=== PATIENT | male | born 1970 | race Caucasian/White ===

== ENCOUNTER 2017-07-26 06:28 | Inpatient (IN) | payer OTHER ==
[2017-07-26] MEDS ORDERED: fentaNYL 100 MCG/2 ML SDV ONE (06:47)
[2017-07-26] MEDS ORDERED: Lidocaine 2% 5 ML SDV ONE (06:47)
[2017-07-26] MEDS ORDERED: Propofol 200 MG/20 ML SDV ONE ×2 (06:47→08:20)
[2017-07-26] MEDS ORDERED: Midazolam 1 MG/ML 2 ML SDV ONE (06:48)
[2017-07-26] MEDS ORDERED: Sodium Chloride 0.9% 20 ML ONE (06:52)
[2017-07-26] MEDS ORDERED: ceFAZolin 1 GM Vial ONE (06:52)
[2017-07-26] MEDS ORDERED: Sodium Chloride 0.9% 10 ML Syringe FLUSH PRN (06:53)
[2017-07-26] MEDS ORDERED: Sodium Chloride 0.9% 2.5 ML Syringe FLUSH PRN (06:53)
[2017-07-26] MEDS: Lactated Ringers 1,000 ML IV SCH ×3 (07:05→20:57)
[2017-07-26] MEDS ORDERED: Dermabond Prineo 1 Tube TOP ONE (07:25)
--- NOTE | 2017-07-26 07:45 | PCM.PREANE ---
Preanesthetic Assessment - Anesthesia/Transfusion/Family Hx Anesthesia History: Prior Anesthesia Without Reaction Family History of Anesthesia Reaction: No Transfusion History: No Prior Transfusion(s) - Review of Systems General: No Symptoms Pulmonary: Other (JEFERSON uses CPAP) Cardiovascular: No Symptoms Gastrointestinal: No Symptoms Neurological: No Symptoms Other: Reports: None - Physical Assessment NPO Status Date: 07/25/17 O2 Sat by Pulse Oximetry: 95 Respiratory Rate: 16 Vital Signs: Last Vital Signs Temp 36.4 C 07/26/17 06:49 Pulse 76 07/26/17 06:49 Resp 16 07/26/17 06:49 BP 133/75 07/26/17 06:49 Pulse Ox 95 07/26/17 06:49 Height: 1.91 m Weight: 121.563 kg ASA Class: 2 Airway Class: Mallampati = 1 Dentition: Reports: Normal Dentition ROM/Head Extension: Full Lungs: Clear to Auscultation, Normal Respiratory Effort Cardiovascular: Regular Rate, Regular Rhythm - Allergies Allergies/Adverse Reactions: Allergies Allergy/AdvReac Type Severity Reaction Status Date / Time No Known Allergies Allergy Verified 07/26/17 06:53 - Anesthesia Plan Pre-Op Medication Ordered: None - Acknowledgements Anesthesia Type Planned: Spinal Pt an Appropriate Candidate for the Planned Anesthesia: Yes Alternatives and Risks of Anesthesia Discussed w Pt/Guardian: Yes Pt/Guardian Understands and Agrees with Anesthesia Plan: Yes PreAnesthesia Questionnaire HEENT History: Cardiovascular History: Reports: Hypertension Other Cardiovascular History: "hypertension in the past" Respiratory History: Reports: Sleep Apnea, Other (See Below) Other Respiratory History: uses CPAP Musculoskeletal History: Reports: Osteoarthritis Other Musculoskeletal History: DJD Psychiatric History: Reports: Anxiety, Depression Endocrine/Metabolic History: Reports: Obesity/BMI 30+ Dermatologic History: Reports: Eczema - Past Surgical History Head Surgeries/Procedures: Reports: None Musculoskeletal Surgical History: Reports: Arthroscopic Knee Other Musculoskeletal Surgeries/Procedures:: arthroscopic knee surgery x3 - SUBSTANCE USE Smoking Status *Q: Never Smoker Recreational Drug Use History: No - HOME MEDS Home Medications: Home Meds Naproxen Sodium [Aleve] 2 - 3 tab PO ASDIRECTED PRN 07/23/17 [History] Venlafaxine HCl [Venlafaxine HCl ER] 75 mg PO DAILY 07/23/17 [History] - CURRENT (IN HOUSE) MEDS Current Meds: Current Medications Lactated Ringer's (Ringers, Lactated) 1,000 mls @ 125 mls/hr IV ASDIRECTED FERNANDO Last Admin: 07/26/17 07:05 Dose: 125 mls/hr Cefazolin Sodium/Dextrose 2 gm (/ Premix) 50 mls @ 50 mls/hr IV ONETIME ONE Stop: 07/26/17 08:59 Sodium Chloride (Saline Flush) 10 ml FLUSH ASDIRECTED PRN PRN Reason: Keep Vein Open Sodium Chloride (Saline Flush) 2.5 ml FLUSH ASDIRECTED PRN PRN Reason: Keep Vein Open Tranexamic Acid (Cyklokapron) 2,000 mg IV ONETIME ONE Stop: 07/26/17 08:01 Discontinued Medications Cefazolin Sodium (Ancef) Confirm Administered Dose 2 gm .ROUTE .STK-MED ONE Stop: 07/26/17 06:53 Fentanyl (Sublimaze) Confirm Administered Dose 100 mcg .ROUTE .STK-MED ONE Stop: 07/26/17 06:48 Sodium Chloride (Normal Saline) Confirm Administered Dose 20 mls @ as directed .ROUTE .STK-MED ONE Stop: 07/26/17 06:53 Lidocaine (Xylocaine-Mpf 2%) Confirm Administered Dose 5 ml .ROUTE .STK-MED ONE Stop: 07/26/17 06:48 Midazolam HCl (Versed 1 Mg/Ml) Confirm Administered Dose 2 mg .ROUTE .STK-MED ONE Stop: 07/26/17 06:49 Octyl Cyanoacrylate (Dermabond Prineo) 1 applic TOP .STK-MED ONE Stop: 07/26/17 07:26 Propofol (Diprivan 20 Ml) Confirm Administered Dose 600 mg .ROUTE .STK-MED ONE Stop: 07/26/17 06:48
[2017-07-26] MEDS ORDERED: ceFAZolin 2 GM in Premix Bag 1 BAG IV ONE (08:00)
[2017-07-26] MEDS ORDERED: Glycopyrrolate 0.2 MG/ML SDV ONE (08:14)
[2017-07-26] MEDS ORDERED: ePHEDrine 50 MG/ML SDV ONE (08:14)
[2017-07-26] MEDS ORDERED: Phenylephrine/Normal Saline 100 MCG/ML 10 ML Syringe ONE ×2 (08:20→09:19)
--- NOTE | 2017-07-26 09:38 | PCM.OPNOTE ---
- General Post-Op/Procedure Note Date of Surgery/Procedure: 07/26/17 Operative Procedure(s): left anterior total hip arthroplasty Findings: severe OA, dysplasia Pre Op Diagnosis: left hip osteoarthritis Post-Op Diagnosis: same Anesthesia Technique: Moderate Sedation, Spinal Primary Surgeon: Hamilton Vickers Mai Drawing Kiln Supervisor: Addie Sanchez Reason Drawing Kiln Supervisor Was Necessary: retraction, closing, reduction Pathology: femoral head EBL in mLs: 300 Complications: none Condition: Good
[2017-07-26] MEDS ORDERED: Aluminum Hydroxide/Magnesium Hydroxide/Simethicone Susp 30 ML Cup PO PRN (09:45)
[2017-07-26] MEDS ORDERED: Morphine 4 MG/ML Syringe IVPUSH PRN (09:45)
[2017-07-26] MEDS ORDERED: Bisacodyl 10 MG Supp RECTAL PRN (09:45)
[2017-07-26] MEDS ORDERED: diphenhydrAMINE 25 MG Cap PO PRN (09:45)
[2017-07-26] MEDS ORDERED: Ondansetron 4 MG/2 ML SDV IV PRN (09:45)
--- NOTE | 2017-07-26 10:01 | PCM.POSTAN ---
POST ANESTHESIA ASSESSMENT - MENTAL STATUS Mental Status: Alert, Oriented - RESPIRATORY Respiratory Status: Respiratory Rate WNL, Airway Patent, O2 Saturation Stable - CARDIOVASCULAR CV Status: Pulse Rate WNL, Blood Pressure Stable - GASTROINTESTINAL GI Status: No Symptoms - POST OP HYDRATION Hydration Status: Adequate & Stable
[2017-07-26] MEDS: Acetaminophen/HYDROcodone 325-5 MG Tab PO PRN ×3 (11:31→22:26)
--- NOTE | 2017-07-26 11:51 | OR ---
SURGEON: Hamilton Clark MD DATE OF PROCEDURE: 07/26/2017 STUDENT SUCCESS COUNSELOR: Addie Sanchez PA-C. PREOPERATIVE DIAGNOSIS: Left hip osteoarthritis. POSTOPERATIVE DIAGNOSIS: Left hip osteoarthritis. OPERATION PERFORMED: Left anterior total hip arthroplasty. ANESTHESIA: Spinal with sedation. COMPLICATION: None. ESTIMATED BLOOD LOSS: 300 mL. SPECIMENS: Femoral head. IMPLANT: Unique Continuum trabecular metal shell with cluster holes, 60 mm outer diameter, one 6.5 x 30 mm length bone screw, Vivacit-E neutral liner 36 mm inner diameter; M/L taper press-fit stem size 12.5 extended offset, reduced neck length; Biolox delta ceramic femoral head 36 mm diameter +7 neck. INDICATIONS: The patient is a 47-year-old male with some dysplasia and severe hip arthritis. He wished to undergo total hip replacement. He understands the risks, benefits, alternatives, complications of the procedure including limited to infection, neurovascular injury, continued pain, dislocation, fracture, leg-length discrepancy and he wished to proceed. OPERATION IN DETAIL: The patient was seen in preoperative area. Operative site was marked. He was transferred to the operating room and spinal anesthetic was given. He was placed supine on the Meza table, and sedation was given. The left leg was placed in leg bar with narrow perineal post. Left hip was prepped and draped in a sterile fashion using alcohol followed by ChloraPrep with Ioban covering. He received preop antibiotics Ancef and also 2 g TXA. Formal time-out was taken identifying the correct procedure and extremity. An 11-cm incision starting just laterally to ASIS going obliquely down femur was made. Dissection carried down to subcu tissues. Hemostasis was obtained. The fascia overlying the TFL, lateral to the lateral femoral cutaneous nerve was opened, interval between sartorius and TFL and deep between the abductors and rectus were opened. The vastus lateralis fascia was opened and the anterior vessels were coagulated. A deep Elie tractor was placed. The capsule was held and tagged with 2 FiberWires and deep retractors were placed. Neck was kept in saddle region to 0.5 cm about the lesser trochanter based on preoperative templating and then the head was removed. He had severe arthritis. Labral remnants were removed as well as the pulvinar and the inferior capsule was released, preserving the iliopsoas tendon and then sequential reaming from 53 up to 59 mm was made slightly superior medial due to the dysplasia. There was excellent fit and fill and the bed was planed to make sure its level and then a Continuum trabecular metal shell with cluster holes was impacted in 10 degrees of anteversion and 40 degrees of abduction. There is excellent press fit. Once straight superior bone screw was placed after drilling, the wound was irrigated out and the neutral liner was impacted. Attention was then paid to the femur. The leg was externally rotated, abducted, and extended after releasing the medial capsule off the calcar. Superior capsule obturator internus and piriformis were released and then the central canal finder was utilized, the patient had a large canal, and was sequential broaching from a starter rasp up to size 12.5 and 13.5, would not go down, attempted to not antevert anymore than the [place] version. It was tried, reduced with a reduced neck, extended offset with 0 head. Printed overlay technique showed offset to be slightly decreased in leg length to be about a cm short. Therefore, the hip was then dislocated. The final could not get up to a 13.5, due to tightness distally, therefore 12.5, extended offset, reduced neck length stem was impacted, it was tried and reduced with a +7 neck length. This showed equal offset, leg length to be decreased maybe 1-2 mm, however, this was deemed acceptable, and was dislocated. The +7 head was impacted, 36 mm diameter, and the hip was relocated. Two tag sutures were tied together. There was no Shuck, and the hip was stable with range of motion. The fascia was closed with #1 Vicryl. The subcutaneous tissues with 2- 0 Stratafix. Skin with running 4-0 Monocryl. Dermabond tape and Aquacel dressing was placed. The patient was transferred to recovery room in stable condition. Sponge and needle counts were correct at the end of the case. No complications. PLAN: The patient was given aspirin for DVT prophylaxis. Weightbearing as tolerated. RASHID SILVA /[id number]
[2017-07-26] MEDS: ceFAZolin 2 GM in Premix Bag 1 BAG IV SCH ×2 (13:29→21:03)
--- NOTE | 2017-07-26 16:26 | CR ---
EXAMINATION: Left hip HISTORY: Arthroplasty COMPARISON: 06/20/2012 TECHNIQUE: 3 fluoroscopic images provided FINDINGS/IMPRESSION: Operative control films demonstrate placement of left total hip hardware. Compar ative right hip demonstrates moderate osteoarthritic changes.
[2017-07-26] MEDS: Docusate Sodium 100 MG Cap PO SCH (20:55)
[2017-07-27] MEDS: Acetaminophen/HYDROcodone 325-5 MG Tab PO PRN (04:45)
--- NOTE | 2017-07-27 07:45 | PCM.SN ---
- Free Text/Narrative Note: Subjective: Patient is doing well he is ambulated in the hallways with a walker with minimal issues. His pain is controlled. He is tolerating by mouth. Objective: Afebrile, vital signs stable Left hip dressing is clean/dry/intact with no erythema or drainage. There is no swelling in the thigh or distally with palpable pedal pulse and normal sensation and motor Hemoglobin 11.7 Assessment/plan: Postoperative day #1 left total hip arthroplasty Weightbearing as tolerated with walker transitioning to cane SCDs and Ecotrin for DVT prophylaxis Hemoglobin is good to home today follow-up in 2 weeks
--- NOTE | 2017-07-27 07:47 | PCM.DCSUM1 ---
Discharge Summary - Hospital Course Brief History: Patient is admitted for elective left total hip arthroplasty - Discharge Data Discharge Date: 07/27/17 Discharge Disposition: Home, Self-Care 01 Condition: Good - Patient Summary/Data Operative Procedure(s) Performed: left anterior total hip arthroplasty Consults: Consultations 07/26/17 09:44 PT Evaluation and Treatment [CONS] Routine Hospital Course: Patient was admitted and underwent uneventful total hip arthroplasty. Postoperatively he was admitted to the floor where his pain was controlled his diet was advanced and he participated in physical therapy with weightbearing as tolerated. He was safely discharged home on postoperative day #1. Walker for ambulation follow-up in 2 weeks Ecotrin for DVT prophylaxis - Patient Instructions Diet: Usual Diet as Tolerated Activity: Apply Ice, As Tolerated, Full Weight Bearing Driving: Do Not Drive Showering/Bathing: May Shower Wound/Incision Care: Keep Operative Site/Wound Site Clean and Dry, Do NOT Change Dressing Notify Provider of: Fever, Swelling and Redness, Drainage - Discharge Plan Home Medications: Home Meds Naproxen Sodium [Aleve] 2 - 3 tab PO ASDIRECTED PRN 07/23/17 [History] Venlafaxine HCl [Venlafaxine HCl ER] 75 mg PO DAILY 07/23/17 [History] Patient Handouts: Acetaminophen; Hydrocodone tablets or capsules, Aspirin, ASA oral tablets, Total Hip Replacement, Care After, [id number], Docusate capsules Referrals: Addie Sanchez PA [Physician [employer]] - 08/07/17 9:00 am - Discharge Summary/Plan Comment DC Time >30 min.: No - Patient Data Vitals - Most Recent: Last Vital Signs Temp 37.3 C 07/27/17 04:00 Pulse 83 07/27/17 04:00 Resp 18 07/27/17 04:00 BP 122/63 07/27/17 04:00 Pulse Ox 93 L 07/27/17 04:00 Weight - Most Recent: 121.563 kg I&O - Last 24 hours: Intake & Output 07/26/17 07/27/17 07/27/17 22:59 06:59 14:59 Intake Total 2379 3066 Output Total 300 3250 Balance 2079 -184 Lab Results - Last 24 hrs: Laboratory Results - last 24 hr 07/27/17 Range/Units 05:41 Hgb 11.7 L (13.0-17.0) g/dL Hct 34.2 L (38.0-50.0) % Med Orders - Current: Current Medications Hydrocodone Bitart/Acetaminophen ([place] 325-5 Mg) 1 - 2 tab PO Q4H PRN PRN Reason: Pain Last Admin: 07/27/17 04:45 Dose: 2 tab Al Hydroxide/Mg Hydroxide (Mag-Al Plus) 30 ml PO Q4H PRN PRN Reason: indigestion Aspirin (Aspirin) 325 mg PO BID [facility] Bisacodyl (Dulcolax) 10 mg RECTAL DAILY PRN PRN Reason: Constipation Diphenhydramine HCl (Benadryl) 25 - 50 mg PO Q6H PRN PRN Reason: Itching Docusate Sodium (Colace) 100 mg PO BID [facility] Last Admin: 07/26/17 20:55 Dose: 100 mg Lactated Ringer's (Ringers, Lactated) 1,000 mls @ 125 mls/hr IV ASDIRECTED [facility] Last Admin: 07/26/17 20:57 Dose: 125 mls/hr Morphine Sulfate (Morphine) 1 - 3 mg IVPUSH Q3H PRN PRN Reason: Pain Ondansetron HCl (Zofran) 4 mg IV Q6HR PRN PRN Reason: NAUSEA/VOMITING Last Admin: 07/26/17 14:14 Dose: 4 mg Sodium Chloride (Saline Flush) 10 ml FLUSH ASDIRECTED PRN PRN Reason: Keep Vein Open Sodium Chloride (Saline Flush) 2.5 ml FLUSH ASDIRECTED PRN PRN Reason: Keep Vein Open Venlafaxine HCl (Effexor Xr) 75 mg PO DAILY [facility] Discontinued Medications Cefazolin Sodium (Ancef) Confirm Administered Dose 2 gm .ROUTE .STK-MED ONE Stop: 07/26/17 06:53 Ephedrine Sulfate (Ephedrine Sulfate) Confirm Administered Dose 50 mg .ROUTE .STK-MED ONE Stop: 07/26/17 08:15 Fentanyl (Sublimaze) Confirm Administered Dose 100 mcg .ROUTE .STK-MED ONE Stop: 07/26/17 06:48 Glycopyrrolate (Robinul) Confirm Administered Dose 0.2 mg .ROUTE .STK-MED ONE Stop: 07/26/17 08:15 Sodium Chloride (Normal Saline) Confirm Administered Dose 20 mls @ as directed .ROUTE .STK-MED ONE Stop: 07/26/17 06:53 Cefazolin Sodium/Dextrose 2 gm (/ Premix) 50 mls @ 50 mls/hr IV ONETIME ONE Stop: 07/26/17 08:59 Last Admin: 07/26/17 10:26 Dose: Not Given Cefazolin Sodium/Dextrose 2 gm (/ Premix) 50 mls @ 100 mls/hr IV Q8H FERNANDO Stop: 07/26/17 22:29 Last Admin: 07/26/17 21:03 Dose: 100 mls/hr Lidocaine (Xylocaine-Mpf 2%) Confirm Administered Dose 5 ml .ROUTE .STK-MED ONE Stop: 07/26/17 06:48 Midazolam HCl (Versed 1 Mg/Ml) Confirm Administered Dose 2 mg .ROUTE .STK-MED ONE Stop: 07/26/17 06:49 Octyl Cyanoacrylate (Dermabond Prineo) 1 applic TOP .STK-MED ONE Stop: 07/26/17 07:26 Phenylephrine HCl (Phenylephrine In Ns 100 Mcg/Ml) Confirm Administered Dose 1 mg .ROUTE .STK-MED ONE Stop: 07/26/17 08:21 Phenylephrine HCl (Phenylephrine In Ns 100 Mcg/Ml) Confirm Administered Dose 1 mg .ROUTE .STK-MED ONE Stop: 07/26/17 09:20 Propofol (Diprivan 20 Ml) Confirm Administered Dose 600 mg .ROUTE .STK-MED ONE Stop: 07/26/17 06:48 Propofol (Diprivan 20 Ml) Confirm Administered Dose 400 mg .ROUTE .STK-MED ONE Stop: 07/26/17 08:21 Tranexamic Acid (Cyklokapron) 2,000 mg IV ONETIME ONE Stop: 07/26/17 08:01 Last Admin: 07/26/17 10:26 Dose: Not Given
--- NOTE | 2017-07-27 08:07 | PCM48HPAN ---
Post Anesthesia Note - EVALUATION WITHIN 48HRS OF ANESTHETIC Vital Signs in Normal Range: Yes Patient Participated in Evaluation: Yes Respiratory Function Stable: Yes Airway Patent: Yes Cardiovascular Function Stable: Yes Hydration Status Stable: Yes Pain Control Satisfactory: Yes Nausea and Vomiting Control Satisfactory: Yes Mental Status Recovered: Yes Resp Rate: 18
[2017-07-27] MEDS: Docusate Sodium 100 MG Cap PO SCH (08:13)
[2017-07-27] MEDS ORDERED: Aspirin 325 MG Tab PO SCH (09:00)
[2017-07-27] MEDS ORDERED: Venlafaxine 75 MG Cap.ER PO SCH (09:00)
== END 2017-07-27 10:41 | disposition home or self-care (01) | DRG 470 ==
LOC: MW.MS 06:28
PROVIDERS: ADMIT Orthopaedic Surgery; ATTEND Orthopaedic Surgery
PROC: 0SRB03Z Replacement of Left Hip Joint with Ceramic Synthetic Substitute, Open Approach (ICD-10-PCS; principal; 2017-07-26)
DX: M16.12 Unilateral primary osteoarthritis, left hip (principal); I10 Essential (primary) hypertension; G47.30 Sleep apnea, unspecified; F41.8 Other specified anxiety disorders; Z79.899 Other long term (current) drug therapy
CPT/HCPCS: 36415; 76000; 76000-26; 85014; 85018; 97110-GP; 97161-GP; A9270-GY; J0690; J2250; J2405; J2704; J3010; J7120

== ENCOUNTER 2019-05-02 11:56 | Day surgery (SDC) | payer BC ==
[~2019-05-02 11:56] MED LIST: 50% Dextrose in Water 50 ML Syringe IVPUSH PRN; Albuterol 0.083% 2.5 MG/3 ML Neb Soln NEB PRN; Atropine 0.1 MG/ML 10 ML Syringe IVPUSH PRN; EPINEPHrine 1:10,000 1 MG/10 ML Syringe IVPUSH PRN; Lactated Ringers 1,000 ML IV SCH; Naloxone 0.4 MG/ML Syringe IVPUSH PRN; fentaNYL 100 MCG/2 ML SDV IVPUSH PRN
--- NOTE | 2019-05-02 12:36 | PCM.PREANE ---
Preanesthetic Assessment - Anesthesia/Transfusion/Family Hx Anesthesia History: Prior Anesthesia Without Reaction Family History of Anesthesia Reaction: No Transfusion History: No Prior Transfusion(s) Intubation History: Unknown - Review of Systems General: No Symptoms Pulmonary: No Symptoms Cardiovascular: No Symptoms Gastrointestinal: No Symptoms, Other (screening colonoscopy) Neurological: No Symptoms Other: Reports: None - Physical Assessment Vital Signs: Last Vital Signs Temp 36.2 C 05/02/19 12:08 Pulse 82 05/02/19 12:08 Resp 16 05/02/19 12:08 BP 132/75 05/02/19 12:08 Pulse Ox 97 05/02/19 12:08 Height: 6 ft 3 in Weight: 116.573 kg ASA Class: 2 Mental Status: Alert & Oriented x3 Airway Class: Mallampati = 2 Dentition: Reports: Normal Dentition Thyro-Mental Finger Breadths: 3 Mouth Opening Finger Breadths: 3 ROM/Head Extension: Full Lungs: Clear to Auscultation, Normal Respiratory Effort Cardiovascular: Regular Rate, Regular Rhythm - Allergies Allergies/Adverse Reactions: Allergies Allergy/AdvReac Type Severity Reaction Status Date / Time No Known Allergies Allergy Verified 04/29/19 11:28 - Blood Blood Available: No - Anesthesia Plan Pre-Op Medication Ordered: None - Acknowledgements Anesthesia Type Planned: MAC Pt an Appropriate Candidate for the Planned Anesthesia: Yes Alternatives and Risks of Anesthesia Discussed w Pt/Guardian: Yes Pt/Guardian Understands and Agrees with Anesthesia Plan: Yes PreAnesthesia Questionnaire Cardiovascular History: Reports: Hypertension Other Cardiovascular History: "hypertension in the past" Respiratory History: Reports: Sleep Apnea Other Respiratory History: uses CPAP every night Musculoskeletal History: Reports: Osteoarthritis Other Musculoskeletal History: DJD Psychiatric History: Reports: Depression Endocrine/Metabolic History: Reports: Obesity/BMI 30+ (BMI 32.1) Dermatologic History: Reports: Eczema - Past Surgical History Head Surgeries/Procedures: Reports: None GI Surgical History: Reports: Colonoscopy (15 years ago) Musculoskeletal Surgical History: Reports: Arthroscopic Knee (left knee x3), Hip Replacement (left '18) Other Musculoskeletal Surgeries/Procedures:: hx of left knee arthroscopy, left ACL and MCL repair , left HORACIO - SUBSTANCE USE Smoking Status *Q: Never Smoker Recreational Drug Use History: No - HOME MEDS Home Medications: Home Meds Venlafaxine HCl [Venlafaxine HCl ER] 75 mg PO QAM 07/23/17 [History] - CURRENT (IN HOUSE) MEDS Current Meds: Current Medications Albuterol (Proventil Neb Soln) 2.5 mg NEB ONETIME PRN PRN Reason: Wheezing Atropine Sulfate (Atropine 0.1 Mg/Ml) 0.5 mg IVPUSH ASDIRECTED PRN PRN Reason: Hypo-perfusion Atropine Sulfate (Atropine 0.1 Mg/Ml) 1 mg IVPUSH ASDIRECTED PRN PRN Reason: Hypo-Perfusion Dextrose/Water (Dextrose 50% In Water) 50 ml IVPUSH ASDIRECTED PRN PRN Reason: Hypoglycemia Epinephrine HCl (Epinephrine 1:10,000) 1 mg IVPUSH ASDIRECTED PRN PRN Reason: ACLS Guidelines Fentanyl (Sublimaze) 50 mcg IVPUSH Q5M PRN PRN Reason: Pain Lactated Ringer's (Ringers, Lactated) 1,000 mls @ 125 mls/hr IV ASDIRECTED FERNANDO Last Admin: 05/02/19 12:13 Dose: 125 mls/hr Naloxone HCl (Narcan) 0.1 mg IVPUSH ASDIRECTED PRN PRN Reason: Respiratory Depression
[2019-05-02] MEDS ORDERED: Propofol 200 MG/20 ML SDV ONE (14:44)
--- NOTE | 2019-05-02 15:17 | PCM.POSTAN ---
POST ANESTHESIA ASSESSMENT - MENTAL STATUS Mental Status: Alert, Oriented - VITAL SIGNS Vital Signs: Last Vital Signs Temp 36.2 C 05/02/19 12:08 Pulse 82 05/02/19 12:08 Resp 16 05/02/19 12:08 BP 132/75 05/02/19 12:08 Pulse Ox 97 05/02/19 12:08 - RESPIRATORY Respiratory Status: Respiratory Rate WNL, Airway Patent, O2 Saturation Stable - CARDIOVASCULAR CV Status: Pulse Rate WNL, Blood Pressure Stable - GASTROINTESTINAL GI Status: No Symptoms - PAIN Pain Score: 0 - POST OP HYDRATION Hydration Status: Adequate & Stable - OBSERVATIONS Free Text/Narrative:: No anesthesia problems, patient skipped recovery room stage of postoperative care
--- NOTE | 2019-05-02 15:28 | PCM.OPNOTE ---
- General Post-Op/Procedure Note Date of Surgery/Procedure: 05/02/19 Operative Procedure(s): colonoscopy w snare polypectomy Findings: see [id number] Pre Op Diagnosis: scrn colonoscopy Post-Op Diagnosis: Same Anesthesia Technique: Moderate Sedation Primary Surgeon: Dashawn Hummel Pathology: 5 mm sessile polyp, snared at 30cm, 2 mm sessile polyp, cold biopsy forceps Complications: None Condition: Good
--- NOTE | 2019-05-02 15:34 | PCM48HPAN ---
Post Anesthesia Note - EVALUATION WITHIN 48HRS OF ANESTHETIC Vital Signs in Normal Range: Yes Patient Participated in Evaluation: Yes Respiratory Function Stable: Yes Airway Patent: Yes Cardiovascular Function Stable: Yes Hydration Status Stable: Yes Pain Control Satisfactory: Yes Nausea and Vomiting Control Satisfactory: Yes Mental Status Recovered: Yes Vital Signs: Last Vital Signs Temp 36.2 C 05/02/19 15:16 Pulse 69 05/02/19 15:16 Resp 12 05/02/19 15:16 BP 122/69 05/02/19 15:16 Pulse Ox 95 05/02/19 15:16 - COMMENTS/OBSERVATIONS Free Text/Narrative:: No anesthesia related complications or concerns.
--- NOTE | 2019-05-02 17:32 | OR ---
SURGEON: Dashawn Hummel MD DATE OF PROCEDURE: 05/02/2019 PREOPERATIVE DIAGNOSIS: Screening colonoscopy. POSTOPERATIVE DIAGNOSIS: Colon polyp. PROCEDURE PERFORMED: Colonoscopy with snare polypectomy. DESCRIPTION OF PROCEDURE: The patient was taken to the endoscopy room. A time out was called, patient identified, and procedure identified. Diprivan was then administrated. Patient went from awake to sleep, hearing doctor talking or door closing is normal. Perineum inspection and digital examination were then performed. A well- lubricated colonoscope was gently inserted through the rectum, advanced past the rectosigmoid junction, the descending colon, splenic flexure, transverse colon, hepatic flexure, ascending colon, arrived to the cecum. Cecum was identified as dictated in the finding. Then the scope was carefully withdrawn while attention was paid to the mucosal surface for any abnormality. Air will be sucked out during the scope withdrawal. At the rectum, retroflexed to examine any rectal diseases, fistula or hemorrhoids. During mucosal examination, abnormality or polyp encountered. Using snare equipment, the abnormality or the polyp was then snared off using electrocautery. The patient tolerated procedure well. There were no intraoperative complications, and Dr. Hummel was present throughout the whole procedure. FINDINGS: 1. The patient is easily sedated with GENERAL ENGINEER and Diprivan, the patient is soundly snoring. 2. Bowel prep is average with some liquid stool, no semi-formed stool. 3. The patient's colon is rather straightforward. Cecum indicated by ileocecal fold, one-to-one indentation, appendiceal orifice. ScopeGuide is pointing south. Light emittance is not observed. Mucosa examined upon scope pulling out with some irrigation. The patient has a 5 mm sessile polyp at distance 30 cm when the scope come out. Snare polypectomy and captured and sent for pathology. Also, the patient has a 2 mm sessile polyp at distance 15 when the scope come out, and again that one using biopsy forceps and removed. There was no other mass, growth, inflammation, stricture, ulceration, AV malformation, diverticulosis, none of those. The patient has mild internal hemorrhoids, some external hemorrhoids. The patient would benefit from repeat colonoscopy depending on the polyp pathology. If the polyp pathology is favorable, the patient will repeat colonoscopy on a regular basis, 10 years from now, or if clinically indicated otherwise. EVA / SHIRA /[id number]
== END 2019-05-02 15:41 | disposition home or self-care (01) ==
LOC: MW.SDS 11:56
PROVIDERS: ATTEND Surgery
DX: Z12.11 Encounter for screening for malignant neoplasm of colon (principal); K64.8 Other hemorrhoids; K64.4 Residual hemorrhoidal skin tags; I10 Essential (primary) hypertension; F32.9 Major depressive disorder, single episode, unspecified; M16.11 Unilateral primary osteoarthritis, right hip; G47.33 Obstructive sleep apnea (adult) (pediatric); E66.9 Obesity, unspecified; Z68.32 Body mass index [BMI] 32.0-32.9, adult; Z99.89 Dependence on other enabling machines and devices
CPT/HCPCS: 45385; J2704; J7120

== ENCOUNTER 2022-01-23 07:28 | Emergency (ER) | payer BC ==
[2022-01-23 09:39] LABS: CARBON DIOXIDE,CO2 30.7 mmol/L (21.0-32.0); POTASSIUM,K 4.5 mmol/L (3.5-5.1)
[2022-01-23 10:06] LABS: C. TRACHOMATIS BY PCR NOT DETECTED; N. GONORRHOEAE BY PCR NOT DETECTED
== END 2022-01-23 10:18 | disposition home or self-care (01) ==
LOC: MW.ED 07:28
DX: N50.812 Left testicular pain (principal); I10 Essential (primary) hypertension; M19.90 Unspecified osteoarthritis, unspecified site; E66.9 Obesity, unspecified; Z68.30 Body mass index [BMI] 30.0-30.9, adult; Z79.899 Other long term (current) drug therapy
CPT/HCPCS: 36415; 76870; 76870-26; 80048; 81001; 87491; 87591; 93976; 93976-26; 99283; 99284

== ENCOUNTER 2023-12-25 10:24 | Day surgery (SDC) | payer BC ==
[~2023-12-25 10:24] MED LIST changes: -50% Dextrose in Water 50 ML Syringe IVPUSH PRN; -Albuterol 0.083% 2.5 MG/3 ML Neb Soln NEB PRN; -Atropine 0.1 MG/ML 10 ML Syringe IVPUSH PRN; -EPINEPHrine 1:10,000 1 MG/10 ML Syringe IVPUSH PRN; -Lactated Ringers 1,000 ML IV SCH; -Naloxone 0.4 MG/ML Syringe IVPUSH PRN; +Sodium Chloride 0.9% 10 ML Syringe FLUSH PRN; +Sodium Chloride 0.9% 2.5 ML Syringe FLUSH PRN; +Sodium Chloride 0.9% 20 ML SDV IV PRN; -fentaNYL 100 MCG/2 ML SDV IVPUSH PRN
[2023-12-25] MEDS: Lactated Ringers 1,000 ML IV SCH (10:49)
[2023-12-25] MEDS ORDERED: propofoL 50 ML ONE (11:52)
== END 2023-12-25 14:10 | disposition home or self-care (01) ==
LOC: MW.SDS 10:24
PROVIDERS: ATTEND Surgery
DX: K21.9 Gastro-esophageal reflux disease without esophagitis (principal); R13.10 Dysphagia, unspecified; I10 Essential (primary) hypertension; F32.A Depression, unspecified; E78.00 Pure hypercholesterolemia, unspecified; G47.33 Obstructive sleep apnea (adult) (pediatric); E66.9 Obesity, unspecified; Z79.899 Other long term (current) drug therapy
CPT/HCPCS: 43239; J2704; J7120; 00731